=== PATIENT | female | born 1930 | race Caucasian/White ===

== ENCOUNTER 2016-07-17 11:08 | Day surgery (SDC) | payer MEDICARE ==
[~2016-07-17] VITALS: Ht 170.2 cm; Wt 55.5 kg
[2016-07-17] MEDS ORDERED: CALTRATE 600 M600 M1 PO (12:10)
[2016-07-17] MEDS ORDERED: CARTIA XT180 MG PO (12:11)
[2016-07-17] MEDS ORDERED: ZYRTEC10 MG PO (12:11)
[2016-07-17] MEDS ORDERED: FLINTSTONE1 TAB.CHEW PO (12:12)
[2016-07-17] MEDS ORDERED: FLORAJEN3 CAPS460 MG PO (12:12)
[2016-07-17] MEDS ORDERED: GLUCOSAMINE & C1 CAP PO (12:12)
[2016-07-17 12:13] LABS: HEMATOCRIT 37.3 % (36.0-48.0); HEMOGLOBIN 12.1 g/dL (12-16); MCH 30.5 pg (26.0-34.0); MCHC 32.4 g/dL (31.0-37.0); RBC 3.97 10x6/uL (4.00-5.40); RDW 13.2 % (11.5-14.5); WBC 5.5 10x3/uL (4.8-10.8)
[2016-07-17] MEDS ORDERED: MELATONIN 3 MG1 TAB PO (12:13)
[2016-07-17 12:19] VITALS: BP 188/90; Ht 170.2 cm; Wt 55.5 kg
[2016-07-17 12:25] LABS: ANION GAP 12.5 mmol/L (8-16); CALCIUM 9.8 mg/dL (8.5-10.1); CARBON DIOXIDE 27.6 mmol/L (21.0-32.0); CREATININE - SERUM 1.1 mg/dL (0.6-1.3); POTASSIUM - SERUM 4.1 mmol/L (3.5-5.1)
--- NOTE | 2016-07-17 13:59 | NUR ---
1345-RECD TO ROOM FROM GI LAB. ALERT. RESP WITH EASE. DENIES PAIN. 1350-UP TO BATHROOM, VOIDS FREELY AND PASSING STOOL AND FLATUS. 1355-FULL LIQUID TRAY SERVED.
--- NOTE | 2016-07-17 15:09 | NUR ---
1445--IV DC'D, PT UP TO DRESS AT THIS TIME. REJI NICHOLE 1505--DISCHARGE INSTRUCTIONS GIVEN, PT VERBALIZES UNDERSTANDING. PT OFF UNIT VIA WC. REJI NICHOLE
--- NOTE | 2016-07-21 20:46 | OP ---
PATIENT NAME: JAGDEEP SPANN MEDICAL RECORD: [id number] :31 [facility] DATE: SURGEON: AALIYAH CRUZ MD DATE OF OPERATION: 07/17/2016 PROCEDURE: EGD with biopsy. REFERRING PHYSICIAN: Dr. Vishal Cortez. INDICATIONS: Ms. Spann is a delightful 85-year-old woman who has had approximately 4 to 5-month history of diarrhea, belching and weight loss. Her stool studies were negative. She has been taking Questran at night and Lomotil during the day as needed. Her diarrhea has decreased in frequency and episodes and she is no longer having diarrhea daily. She has a history of dysplastic colon polyp status post right hemicolectomy (Dr. Will Johnson) 03/14/2006. Her last colonoscopy was 07/17/2007 that showed a colon polyps and mild pandiverticulosis coli. The colon polyps were all hyperplastic in nature. She presents for outpatient EGD. PREMEDICATIONS: Total IV anesthesia (propofol 100 mg) advanced age. INSTRUMENT: Olympus video gastroscope. PROCEDURE AND FINDINGS: After receiving informed consent, Ms. Spann's posterior pharynx was anesthetized with Cetacaine spray. She was placed in left lateral decubitus position, sedated as per anesthesia. After achieving adequate level of sedation, gastroscope was introduced per orally and advanced to the duodenum without difficulty. The esophageal mucosa was without erythema or ulcers. A small hiatal hernia was noted. Gastric mucosa was notable for scattered erosions in the antrum and distal body of the stomach, a few of erosions had stigmata of recent bleeding (brown pigment in material). Antral biopsies were obtained to rule out Helicobacter pylori. No lesions were seen in the cardia, fundus, body or along the incisura of the stomach. Pylorus was patent and competent. Duodenal mucosa was without erythema or ulcers, appeared normal through the second portion. Biopsies were obtained from the second portion of duodenum to rule out celiac disease. As gastroscope was withdrawn, biopsies taken from the distal third of the esophagus to rule out reflux changes. Ms. Spann tolerated the procedure well, no immediate complications. ASSESSMENT: 1. Small hiatal hernia. 2. Mild erosive gastritis with stigmata of recent bleeding. 3. Symptoms of gas, bloating. 4. Diarrhea. RECOMMENDATIONS: 1. Follow up histopathology. 2. Trial of omeprazole 20 mg p.o. daily and some of the belching may be secondary to gastroesophageal reflux. 3. Colonoscopy. PLAN: Nonsteroidal antiinflammatory drugs. TRANSINT:[id number] Voice Confirmation ID: [id number] DOCUMENT ID: [id number] OPERATIVE REPORT [id number] JAGDEEP SPANN TERRI MD at 2046 CC: VISHAL CORTEZ MD [id number] DICTATION DATE: 07/17/16 1334 [employer]: 07/17/16 1838 [facility] 07/17/16 [facility] [address] [place] [id number]
== END 2016-07-17 15:05 | disposition home or self-care (01) ==
LOC: D.OPS 11:08
PROVIDERS: Anesthesiology
DX: K44.9 Diaphragmatic hernia without obstruction or gangrene (principal); K29.40 Chronic atrophic gastritis without bleeding; K20.9 Esophagitis, unspecified; K29.80 Duodenitis without bleeding; K29.00 Acute gastritis without bleeding; R14.3 Flatulence

== ENCOUNTER 2016-09-09 08:40 | Day surgery (SDC) | payer MEDICARE ==
[~2016-09-09] VITALS: Ht 170.2 cm; Wt 55.5 kg
[~2016-09-09 08:40] MED LIST: CALTRATE 600 M600 M1 PO; CARTIA XT180 MG PO; FLINTSTONE1 TAB.CHEW PO; FLORAJEN3 CAPS460 MG PO; GLUCOSAMINE & C1 CAP PO; MELATONIN 3 MG1 TAB PO; ZYRTEC10 MG PO
[2016-09-09 09:48] LABS: BASOPHILS 0.6 % (0.0-2.0); EOSINOPHILS 4.3 % (0-7); HEMATOCRIT 35.1 % (36.0-48.0); HEMOGLOBIN 11.6 g/dL (12-16); IMMATURE GRANULOCYTES 0.2 % (0-5); LYMPHOCYTES 18.5 % (15-50); MCH 30.9 pg (26.0-34.0); MCV 93.4 fL (80.0-100.0); MEAN PLATELET VOLUME 10.4 fL (7.4-10.4); MONOCYTES 9.6 % (2-11); NEUTROPHILS 66.8 % (40-80); PLATELET COUNT 220 10x3/uL (130-400); RBC 3.76 10x6/uL (4.00-5.40); RDW 13.4 % (11.5-14.5); WBC 4.7 10x3/uL (4.8-10.8)
[2016-09-09 09:57] LABS: ANION GAP 11.5 mmol/L (8-16); CALCIUM 9.6 mg/dL (8.5-10.1); CARBON DIOXIDE 27.2 mmol/L (21.0-32.0); CREATININE - SERUM 1.2 mg/dL (0.6-1.3); POTASSIUM - SERUM 3.7 mmol/L (3.5-5.1)
[2016-09-09 10:07] VITALS: BP 130/66; Ht 170.2 cm; Wt 55.5 kg
--- NOTE | 2016-09-09 11:02 | NUR ---
LUKI TUBE STOOL SPECIMEN TAKEN
--- NOTE | 2016-09-09 12:20 | NUR ---
DISCHARGED HOME VIA WHEELCHAIR TO PRIVATE VEHICLE WITH FRIEND
[2016-09-14 03:10] LABS: OVA + PARASITE EXAM Final report (())
--- NOTE | 2016-09-17 12:04 | OP ---
PATIENT NAME: JAGDEEP SPANN MEDICAL RECORD: [id number] :31 LOCATION:[facility] ADMISSION DATE: SURGEON: JASON GANN DO DATE OF OPERATION: 09/09/2016 PROCEDURE: Colonoscopy with biopsies. ENDOSCOPIST: Jason Gann DO. SCOPE: Olympus video colonoscope. MEDICATIONS: Propofol 200 mg IV and lidocaine 100 mg IV per anesthesia. INDICATIONS FOR PROCEDURE: Diarrhea, abnormal weight loss, history of colon polyps, and lower abdominal pain. FINDINGS: Informed consent was given. The patient was made comfortable with the above medications. After reaching an adequate level of sedation by slow IV push, the patient was placed in the left side. The endoscope was then advanced under direct visualization through the rectum to the terminal ileum. The terminal ileum appeared normal. There was evidence of a prior intervention involving the cecum and ileocecal valve area consistent with a passed colon surgery. In the cecum, there was a sessile polyp measuring approximately 4 mm in diameter that was removed by cold biopsy polypectomy. The polyp was completely retrieved and removed. There was evidence of peridiverticular colitis involving the sigmoid colon. This was evidenced by thickening of the sigmoid colon and loss of vascular markings. Random biopsies were taken in the sigmoid colon and sent for histology. There were also random biopsies taken with cold forceps of the ascending and transverse colon to rule out microscopic colitis. The remainder of the colonoscopy was normal. The scope was withdrawn from the patient. The patient tolerated the procedure well and there were no complications. ESTIMATED BLOOD LOSS: Less than 3 cc. IMPRESSION: 1. A single cecal sessile polyp measuring approximately 4 mm, removed with cold forceps. 2. Peridiverticular colitis involving the sigmoid colon. 3. Diverticulosis involving the sigmoid colon and mildly in the transverse and ascending colon. 4. Random biopsies taken of the ascending and transverse colon to rule out microscopic colitis. PLAN AND RECOMMENDATIONS: 1. Follow up biopsy results. 2. Continue current diet and medications. 3. Continue symptomatic control of diarrhea. This is possibly related to her past surgery, which appears to have removed the ileocecal valve. Stool was aspirated during the study and sent for further studies and we will follow up with the results of these studies prior to any medication changes. 4. Follow up in the GI clinic as needed. TRANSINT:[id number] Voice Confirmation ID: [id number] DOCUMENT ID: [id number] OPERATIVE REPORT [id number] JAGDEEP SPANN,JASON Orta DO at 1204 CC: [id number] DICTATION DATE: 09/09/16 1059 SUSTAINABILITY DIRECTOR: 09/09/16 1423 [facility] 09/09/16 [place] [id number] [place] [id number]
== END 2016-09-09 12:20 | disposition home or self-care (01) ==
LOC: D.OPS 08:40
PROVIDERS: Anesthesiology; Internal Medicine Gastroenterology
DX: D12.0 Benign neoplasm of cecum (principal); K57.30 Diverticulosis of large intestine without perforation or abscess without bleeding; K52.89 Other specified noninfective gastroenteritis and colitis; R19.7 Diarrhea, unspecified; R63.4 Abnormal weight loss; Z86.010 Personal history of colon polyps